=== PATIENT | female | born 1955 | race Caucasian/White ===

== ENCOUNTER 2017-03-15 19:08 | Emergency (ER) | payer BC, OTHER ==
[2017-03-15 19:43] VITALS: BP 145/72
--- NOTE | 2017-03-15 20:06 | UC ---
Eye Complaint HPI - HPI Summary HPI Summary: 61 yo female with 2-3 days hx of right medial eye irritations purulent d/c in AM no photophobia - History of Current Complaint Chief Complaint: UCEye Stated Complaint: EYE IRRITATION Time Seen by Provider: 03/15/17 19:54 Hx Obtained From: Patient Hx Last Menstrual Period: n/a Onset/Duration: Gradual Onset Timing: Constant Severity Initially: Mild Severity Currently: Mild Pain Intensity: 1 Pain Scale Used: 0-10 Numeric Location of Injury: Conjunctiva Aggravating Factor(s): Nothing Associated Signs And Symptoms: Positive: Drainage (Purulent) - Allergies/Home Medications Allergies/Adverse Reactions: Allergies Allergy/AdvReac Type Severity Reaction Status Date / Time Adhesive Tape Allergy Intermediate Rash Verified 03/15/17 19:43 bandaids Allergy Rash Uncoded 03/15/17 19:43 latex Allergy Rash Uncoded 03/15/17 19:43 Home Medications: Home Medications Diphenhydramine-Acetaminophen [Tylenol Pm Extra Strength 500-25 mg] 2 tab PO BEDTIME PRN 03/15/17 [History Confirmed 03/15/17] PMH/Surg Hx/FS Hx/Imm Hx Previously Healthy: Yes - Surgical History Surgical History: Yes Surgery Procedure, Year, and Place: [place] [id number]. FIBROID TUMORS REMOVED -1979, AND - D&C'S - Family History Known Family History: Positive: Hypertension - Social History Alcohol Use: Rare Substance Use Type: None Smoking Status (MU): Never Smoked Tobacco Have You Smoked in the Last Year: No - Immunization History Hx Tetanus, Diphtheria Vaccination: Yes Vaccination Up to Date: Yes Review of Systems Constitutional: Negative Skin: Negative Eyes: Drainage, Eye Redness ENT: Negative Respiratory: Negative Cardiovascular: Negative Gastrointestinal: Negative Genitourinary: Negative Motor: Negative Neurovascular: Negative Musculoskeletal: Negative Neurological: Negative Psychological: Negative All Other Systems Reviewed And Are Negative: Yes Physical Exam Triage Information Reviewed: Yes Appearance: Well-Appearing, No Pain Distress, Well-Nourished Vital Signs: Initial Vital Signs Temp 97.9 F 03/15/17 19:37 Pulse 70 03/15/17 19:37 Resp 16 03/15/17 19:37 BP 145/72 03/15/17 19:37 Pulse Ox 97 03/15/17 19:37 Vital Signs Reviewed: Yes Eyes: Positive: Conjunctiva Inflamed - medial right, Other: - 3 lashes curled inward-only able to remove one ENT: Positive: Hearing grossly normal, Pharynx normal. Negative: Nasal congestion, Nasal drainage Neck: Positive: Supple, Nontender Respiratory: Positive: Lungs clear, Normal breath sounds, No respiratory distress Cardiovascular: Positive: RRR, No Murmur Skin Exam: Normal Eye Complaint Course/Dx - Differential Dx/Diagnosis Provider Diagnoses: conjunctivitis (R). entropian Discharge - Discharge Plan Condition: Stable Disposition: HOME Patient Education Materials: Conjunctivitis (ED) Referrals: Aleksandar Araiza MD [Medical Doctor] - Tip Rivera MD [Primary Care Provider] - If Needed Jacqueline RAMOS,Amena [Medical Doctor] - Additional Instructions: if not improving I suggest you see an legal financial specialist a few lashes from you upper lid are curling inward and may be the cause of your symptoms
[2017-03-15] MEDS ORDERED: Polymyx/Trimethoprim OPTH* 10 ML BTL RIGHT EYE ONE (20:08)
== END 2017-03-15 20:22 | disposition home or self-care (01) ==
LOC: UCCORT 19:08
DX: H10.9 Unspecified conjunctivitis (principal); H02.009 Unspecified entropion of unspecified eye, unspecified eyelid
CPT/HCPCS: 99212; G0463

== ENCOUNTER 2017-06-07 10:53 | Emergency (ER) | payer BC ==
[2017-06-07 11:09] VITALS: BP 141/79
--- NOTE | 2017-06-07 11:20 | UC ---
Lower Extremity/Ankle HPI - HPI Summary HPI Summary: clemencia was walking and stepped on a pinecone, twisted the ankle and fell forward, landing on the left knee. abrasions to the left knee, but no joint pain , full ROM. right ankle ROM is limited due to pain, moderates swelling over the lateral aspect of ankle - History of Current Complaint Chief Complaint: UCLowerExtremity Stated Complaint: S/P FALL RIGHT ANKLE LEFT KNEE Time Seen by Provider: 06/07/17 11:12 Hx Obtained From: Patient Hx Last Menstrual Period: n/a ?: No Onset/Duration: Sudden Onset, Lasting Hours Severity Initially: Severe Severity Currently: Moderate Aggravating Factor(s): Standing, Ambulation Alleviating Factor(s): Rest Able to Bear Weight: Yes - Allergies/Home Medications Allergies/Adverse Reactions: Allergies Allergy/AdvReac Type Severity Reaction Status Date / Time Adhesive Tape Allergy Intermediate Rash Verified 06/07/17 11:09 bandaids Allergy Rash Uncoded 06/07/17 11:09 latex Allergy Rash Uncoded 06/07/17 11:09 PMH/Surg Hx/FS Hx/Imm Hx Previously Healthy: Yes - Surgical History Surgical History: Yes Surgery Procedure, Year, and Place[place] [id number][place]69[place]. FIBROID TUMORS REMOVED -1979, AND - D&C'S - Family History Known Family History: Positive: None, Hypertension - Social History Alcohol Use: None Substance Use Type: None Smoking Status (MU): Never Smoked Tobacco Have You Smoked in the Last Year: No - Immunization History Most Recent Influenza Vaccination: 05/2017 Hx Tetanus, Diphtheria Vaccination: Yes Vaccination Up to Date: Yes Review of Systems Constitutional: Negative Skin: Negative Eyes: Negative ENT: Negative Respiratory: Negative Cardiovascular: Negative Gastrointestinal: Negative Genitourinary: Negative Motor: Negative Musculoskeletal: Arthralgia, Decreased ROM, Edema Neurological: Negative Psychological: Negative Is Patient Immunocompromised?: No All Other Systems Reviewed And Are Negative: Yes Physical Exam Triage Information Reviewed: Yes Appearance: Well-Appearing, Well-Nourished, Pain Distress Vital Signs: Initial Vital Signs Temp 98.2 F 06/07/17 11:04 Pulse 66 06/07/17 11:04 Resp 14 06/07/17 11:04 BP 141/79 06/07/17 11:04 Pulse Ox 100 09/18/17 11:04 Vital Signs Reviewed: Yes Eye Exam: Normal ENT Exam: Normal Dental Exam: Normal Neck exam: Normal Neck: Positive: Supple, Nontender, No Lymphadenopathy Respiratory Exam: Normal Respiratory: Positive: Chest non-tender, Lungs clear, Normal breath sounds Cardiovascular Exam: Normal Cardiovascular: Positive: RRR, No Murmur, Pulses Normal Abdominal Exam: Normal Abdomen Description: Positive: Nontender, No Organomegaly, Soft Bowel Sounds: Positive: Present Musculoskeletal Exam: Normal Musculoskeletal: Positive: Strength Limited @ - in right ankle, ROM Limited @ - in dorsiflexion and inversion and eversion, Edema @ - lateral right ankle Neurological Exam: Normal Neurological: Positive: Alert, Muscle Tone Normal Psychological Exam: Normal Skin Exam: Normal Lower Extremity Course/Dx - Course Course Of Treatment: hx obtained, exam performed ,meds reviewed, xray obtained, right distal non displaced fibular fracture, cam boot and crutches given, patient has her own crutches. follow up with ortho advised in 1-2 days - Differential Dx/Diagnosis Differential Diagnosis/HQI/PQRI: Contusion, Fracture (Closed), Sprain, Strain Provider Diagnoses: right non displaced distal fibular fracture Discharge - Discharge Plan Condition: Stable Disposition: HOME Patient Education Materials: Leg Fracture (ED) Referrals: Tip Rivera MD [Primary Care Provider] - Perfecto Sykes MD [Medical Doctor] - Additional Instructions: 1. use the CAM boot and crutches to stay non weight bearing until you follow up with th orthopedist. 2. tylenol for pain 3. Ice and elevate to reduce the swelling
--- NOTE | 2017-06-07 11:38 | RAD ---
INDICATION: Right ankle injury. TECHNIQUE: 3 views of the right ankle were obtained. FINDINGS: There is soft tissue swelling present along the lateral aspect of the ankle. There is a transverse nondisplaced fracture through the distal fibular tip. No other fractures are seen. Joint spaces appear maintained. IMPRESSION: NONDISPLACED FRACTURE OF THE DISTAL FIBULAR TIP.
== END 2017-06-07 12:04 | disposition home or self-care (01) ==
LOC: UCCORT 10:53
DX: S82.424A Nondisplaced transverse fracture of shaft of right fibula, initial encounter for closed fracture (principal); S80.212A Abrasion, left knee, initial encounter; X50.1XXA Overexertion from prolonged static or awkward postures, initial encounter; Y93.9 Activity, unspecified; Y92.9 Unspecified place or not applicable; Z90.710 Acquired absence of both cervix and uterus; Z91.040 Latex allergy status; Z91.048 Other nonmedicinal substance allergy status
CPT/HCPCS: 99213; G0463

== ENCOUNTER 2018-12-16 13:44 | Emergency (ER) | payer BC ==
[2018-12-16 14:05] VITALS: BP 146/81
--- NOTE | 2018-12-16 14:20 | UC ---
Skin Complaint HPI - HPI Summary HPI Summary: rash left lower leg x 4 days the area is red, swollen, itchy no known injury , cannot recall if her leg was brushed against something no fever, no chills, mild tenderness - History of Current Complaint Chief Complaint: UCSkin Time Seen by Provider: 12/16/18 14:02 Stated Complaint: LT LEG SKIN CONCERN Hx Obtained From: Patient Hx Last Menstrual Period: 2009 ?: No Onset/Duration: Gradual Onset, Lasting Days - 4, Still Present Timing: Constant Onset Severity: Mild Current Severity: Mild Pain Intensity: 3 Location: Discrete - left lower leg Character: Swelling, Pruritus, Pain, Redness, Raised Aggravating Factor(s): Touch Alleviating Factor(s): Nothing Associated Signs & Symptoms: Positive: Tenderness. Negative: Nausea, Vomiting, Weakness - Allergy/Home Medications Allergies/Adverse Reactions: Allergies Allergy/AdvReac Type Severity Reaction Status Date / Time Adhesive Tape Allergy Intermediate Rash Verified 06/07/17 11:09 bandaids Allergy Rash Uncoded 06/07/17 11:09 latex Allergy Rash Uncoded 06/07/17 11:09 Home Medications: Home Medications LevoCETirizine TAB (NF) [Xyzal TAB (NF)] 5 mg PO DAILY 12/16/18 [History Confirmed 12/16/18] Potassium Tab 2 tab PO BID 12/16/18 [History Confirmed 12/16/18] Pravastatin Sodium [Pravachol] 40 mg PO BEDTIME 12/16/18 [History Confirmed ] Ramipril 10 mg PO BEDTIME 12/16/18 [History Confirmed 12/16/18] Sitagliptin Phosphate [Januvia] 100 mg PO QPM 12/16/18 [History Confirmed ] PMH/Surg Hx/FS Hx/Imm Hx Endocrine History: Diabetes Cardiovascular History: Hypertension - Surgical History Surgical History: Yes Surgery Procedure, Year, and Place: hysterectomy[place]08/2010[place] [id number]-07/[place]. FIBROID TUMORS REMOVED -1979, AND S- D&C'S - Family History Known Family History: Positive: None, Hypertension - Social History Alcohol Use: None Substance Use Type: None Smoking Status (MU): Never Smoked Tobacco Have You Smoked in the Last Year: No - Immunization History Most Recent Influenza Vaccination: 05/2017 Most Recent Tetanus Shot: unknown Hx Tetanus, Diphtheria Vaccination: Yes Vaccination Up to Date: Yes Review of Systems All Other Systems Reviewed And Are Negative: Yes Constitutional: Positive: Fever Skin: Positive: Rash ENT: Positive: Negative Respiratory: Positive: Negative Gastrointestinal: Positive: Negative Is Patient Immunocompromised?: No Physical Exam Triage Information Reviewed: Yes Appearance: Well-Appearing, No Pain Distress, Well-Nourished Vital Signs: Initial Vital Signs Temp 97.9 F 12/16/18 13:54 Pulse 79 12/16/18 13:54 Resp 18 12/16/18 13:54 BP 146/81 12/16/18 13:54 Pulse Ox 97 12/16/18 13:54 Vital Signs Reviewed: Yes Eye Exam: Normal ENT Exam: Normal ENT: Positive: Normal ENT inspection, Hearing grossly normal, Pharynx normal Neck: Positive: Supple, Nontender, No Lymphadenopathy Respiratory: Positive: Chest non-tender, Lungs clear, Normal breath sounds Cardiovascular: Positive: RRR, No Murmur, Pulses Normal Skin: Positive: Rashes - macular rash left lower leg , + erythema, itchy, mild tenderness Course/Dx - Diagnoses Provider Diagnosis: Contact dermatitis Discharge - Sign-Out/Discharge Documenting (check all that apply): Patient Departure All imaging exams completed and their final reports reviewed: No Studies - Discharge Plan Condition: Stable Disposition: HOME Prescriptions: Triamcinolone 0.1% CREAM(NF) [Kenalog Cream 0.1%(NF)] 1 applic TOPICAL BID #60 gm Patient Education Materials: Contact Dermatitis (DC) Referrals: Tip Rivera MD [Primary Care Provider] - 7 Days - Billing Disposition and Condition Condition: STABLE Disposition: Home
== END 2018-12-16 14:23 | disposition home or self-care (01) ==
LOC: UCCORT 13:44
DX: L25.9 Unspecified contact dermatitis, unspecified cause (principal); E11.9 Type 2 diabetes mellitus without complications; I10 Essential (primary) hypertension; Z79.899 Other long term (current) drug therapy; Z79.84 Long term (current) use of oral hypoglycemic drugs; Z91.09 Other allergy status, other than to drugs and biological substances; Z91.040 Latex allergy status
CPT/HCPCS: 99212; G0463